=== PATIENT | male | born 1990 | race Caucasian/White ===

== ENCOUNTER → 2022-06-26 09:54 | Outpatient (BNVA) | payer SELFPAY | PROVIDERS: Family Provider Family Medicine; PCP Family Medicine; Visit Provider Family Medicine | DX: I10 Essential (primary) hypertension (principal); Z00.00 Encounter for general adult medical examination without abnormal findings; E66.9 Obesity, unspecified; Z87.39 Personal history of other diseases of the musculoskeletal system and connective tissue; L60.0 Ingrowing nail | CPT/HCPCS: 80053; 80061; 84443; 85025 ==

== ENCOUNTER 2023-10-23 18:15 | Observation (INO) | payer MEDICAID, SELFPAY ==
[2023-10-23 18:16] VITALS: BP 184/94; PULSE 91; RESP 18; TEMP 36.7; O2SAT 97; BMI 42.2
[2023-10-23 18:36] VITALS: BP 149/74; PULSE 86; RESP 18; O2SAT 97
[2023-10-23 19:04] LABS: Basophils % 0.4 %; Eosinophils # 0.1 10^3/uL (0.0-0.8); Eosinophils % 0.7 %; Hematocrit 43.3 % (37-53); Lymphocytes # 1.1 10^3/uL (0.8-4.8); Lymphocytes % 15.7 %; Mean Corpuscular HGB Conc 33.3 g/dL (30-55); Mean Corpuscular Hemoglobin 30.3 pg (27-33); Mean Corpuscular Volume 91.2 fl (82-101); Mean Platelet Volume 8.5 fL (7.4-10.4); Monocytes # 0.9 10^3/uL (0.2-0.9); Monocytes % 12.6 %; Neutrophils # 4.75 10^3/uL (1.8-7.7); Neutrophils % 70.2 %; Nucleated Red Blood Cells % 0 %; Platelet Count 204 10^3/cmm (157-399); Red Blood Count 4.75 10^6/uL (3.85-5.65); Red Cell Distribution Width 12.3 % (12.1-15.1); White Blood Count 6.77 10^3/uL (3.29-11.43)
[2023-10-23 19:25] LABS: Alanine Aminotransferase 28 U/L (0-41); Albumin Level 4.2 g/dL (3.5-5.2); Alkaline Phosphatase 70 U/L (40-130); Aspartate Amino Transferase 18 U/L (0-40); Blood Urea Nitrogen 15 mg/dL (6-20); Carbon Dioxide 25 mmol/L (22-29); Chloride 101 mmol/L (98-107); Glucose 100 mg/dL (65-115); Lipase 17 U/L (13-60); Osmolality Calculated 285 mOsm/kg (285-295); Sodium 137 mmol/L (136-145); Total Bilirubin 0.4 mg/dL (0.15-1.2); Total Protein 7.2 g/dL (6.6-8.7)
--- NOTE | 2023-10-23 19:34 | W.ED.ABDPA2 ---
HPI - Abdominal Pain General: Chief Complaint: Abdominal Pain Stated Complaint: lower abd pain, feverish Time Seen by Provider: 10/23/23 18:23 History of Present Illness: Patient presents to the ER with abdominal pain that is worse in the right upper quadrant. Patient states this been going on as well as a fever for the last several days. Patient denies any history of problems with his gallbladder. Patient states he has not been able to eat or drink much for the past several days secondary to nausea. Patient has been taken Tylenol for the pain. Review of Systems General: Reports: 10 or more systems reviewed and unremarkable except in HPI and below PFSH ED PFSH: Medical History Ingrown nail History of back pain Obesity Hypertension Social History Smoking and tobacco/nicotine status: never used tobacco/nicotine Alcohol intake: never Substance/Drug Use: former Physical Exam Const: COMMON NORMALS: no acute distress, average body habitus, patient oriented x3, no limitations, healthy appearing, alert and well nourished HENMT: COMMON NORMALS: normocephalic, atraumatic, hearing grossly normal bilaterally, external ears normal, Normal external nose present, moist oral mucous membranes and oropharynx normal HEAD & SCALP: normocephalic and atraumatic NOSE: Normal external nose present EXTERNAL EAR: Yes external ears normal Neck/C-Spine: COMMON NORMALS: no JVD Chest: COMMONS NORMALS: normal inspection of the chest and normal palpation of entire chest wall Resp: COMMON NORMALS: normal respiratory effort, No retractions, No use of accessory muscles and clear to auscultation bilaterally AUSCULTATION: clear to auscultation bilaterally Cardio: COMMON NORMALS: no JVD, regular rate, regular rhythm, S1 normal heart sound present, S2 normal heart sound present, No gallops present (Cardio), No clicks present (Cardio) and No murmurs present (Cardio) RATE: regular rate RHYTHM: regular rhythm HEART SOUNDS: S1 normal heart sound present and S2 normal heart sound present GI: COMMON NORMALS: Normal to inspection, nondistended, normoactive bowel sounds present, Soft to palpation, No hepatosplenomegaly present, no masses and no bruits; negative for non-tender (Diffusely tender worse right upper quadrant/epigastric) PALPATION: Yes Soft to palpation and Yes No hepatosplenomegaly present Neuro: COMMON NORMALS: patient oriented x3 SENSORIUM/ORIENTATION: Yes alert Course Vital Signs: Vital signs: Vital Signs Temperature 98.0 F 10/23/23 18:16 Pulse Rate 86 10/23/23 18:36 Respiratory Rate 18 10/23/23 18:36 Blood Pressure 149/74 10/23/23 18:36 Pulse Oximetry 97 10/23/23 18:36 Oxygen Delivery Me thod Room Air 10/23/23 18:36 MDM - Abdominal Pain Medical Decision Making Patient lab work done that included CBC CMP and UA, this was unremarkable except for some hematuria. Patient had a contrasted CT scan of the abdomen pelvis that showed acute appendicitis. Dr. Pierce was consulted who agreed to admit the patient for further evaluation and treatment and probably take him to surgery in the morning. We will give the patient Zosyn and make him n.p.o. after midnight. Differential Diagnosis Likely abdominal pain; Unlikely acute appendicitis, calculus of kidney, constipation, diverticulitis, endometriosis, gastroenteritis, pancreatitis or small bowel obstruction Medical Records I reviewed the patient's medical records. Lab Data I reviewed the patient's lab results. 10/23/23 18:55 10/23/23 18:55 Labs/Radiology: Radiology Impressions Abdomen/Pelvis CT 10/23/23 20:19 IMPRESSION: 1. Mildly enlarged appendix. Moderate hazy right lower quadrant mesenteric edema and borderline enlarged lymph nodes. Although the mesenteric edema is somewhat removed from the appendix, there is paracolic gutter fascial thickening near the appendix. Findings are therefore HIGHLY SUSPICIOUS FOR ACUTE APPENDICITIS rather than primary mesenteric inflammatory process. 2. Mild splenomegaly, evidence of prior calcific granulomatous disease and hepatic steatosis. COMMENTS: Consistent with the [employer]'s Incidental Findings Committee white paper (J Am Costa Radiol 2018): Any incidental renal lesion less than 1 cm or classified as too small to characterize, or any incidental cystic renal lesion characterized as simple-appearing, is likely benign. No follow-up imaging is recommended for these lesions per consensus recommendations based on imaging criteria. Laboratory Results WBC 6.77 10^3/uL (3.29-11.43) 10/23/23 18:55 RBC 4.75 10^6/uL (3.85-5.65) 10/23/23 18:55 Hgb 14.40 g/dL (11.27-16.99) 10/23/23 18:55 Hct 43.3 % (37-53) 10/23/23 18:55 MCV 91.2 fl (82-101) 10/23/23 18:55 MCH 30.3 pg (27-33) 10/23/23 18: MCHC 33.3 g/dL (30-55) 10/23/23 18:55 RDW 12.3 % (12.1-15.1) 10/23/23 18:55 Plt Count 204 10^3/cmm (157-399) 10/23/23 18:55 MPV 8.5 fL (7.4-10.4) 10/23/23 18:55 Neut % (Auto) 70.2 % 10/23/23 18:55 Lymph % (Auto) 15.7 % 10/23/23 18:55 Schuyler % (Auto) 12.6 % 10/23/23 18:55 Eos % (Auto) 0.7 % 10/23/23 18:55 Baso % (Auto) 0.4 % 10/23/23 18:55 Neut # (Auto) 4.75 10^3/uL (1.8-7.7) 10/23/23 18: Lymph # (Auto) 1.1 10^3/uL (0.8-4.8) 10/23/23 18:55 Schuyler # (Auto) 0.9 10^3/uL (0.2-0.9) 10/23/23 18:55 Eos # (Auto) 0.1 10^3/uL (0.0-0.8) 10/23/23 18:55 Baso # (Auto) 0.0 10^3/uL (0.0-0.1) 10/23/23 18:55 Nucleated RBC % (auto) 0 % 10/23/23 18: Nucleated RBCs # 0.0 /100WBC 10/23/23 18:55 Sodium 137 mmol/L (136-145) 10/23/23 18:55 Potassium 3.8 mmol/L (3.5-5.1) 10/23/23 18: Chloride 101 mmol/L (98-107) 10/23/23 18:55 Carbon Dioxide 25 mmol/L (22-29) 10/23/23 18:55 Anion Gap 14.8 (5-19) 10/23/23 18:55 BUN 15 mg/dL (6-20) 10/23/23 18:55 Creatinine 0.8 mg/dL (0.7-1.2) 10/23/23 18:55 GFR Calculation 112.0 mL/min (90-130) 10/23/23 18:55 Glucose 100 mg/dL (65-115) 10/23/23 18:55 Calculated Osmolality 285 mOsm/kg (285-295) 10/23/23 18:55 Calcium 9.0 mg/dL (8.5-10.5) 10/23/23 18:55 Total Bilirubin 0.4 mg/dL (0.15-1.2) 10/23/23 18:55 AST 18 U/L (0-40) 10/23/23 18:55 ALT 28 U/L (0-41) 10/23/23 18:55 Alkaline Phosphatase 70 U/L (40-130) 10/23/23 18:55 C-Reactive Protein 102.0 mg/L (0.0-4.9) H 10/23/23 18:55 Total Protein 7.2 g/dL (6.6-8.7) 10/23/23 18:55 Albumin 4.2 g/dL (3.5-5.2) 10/23/23 18:55 Globulin 3.0 g/dL (1.3-4.6) 10/23/23 18:55 Lipase 17 U/L (13-60) 10/23/23 18:55 Urine Color Yellow (Yellow) 10/23/23 19:30 Urine Appearance Clear (CLEAR) 10/23/23 19:30 Urine pH 5 (5-7) 10/23/23 19:30 Ur Specific [place] 1.025 (1.005-1.030) 10/23/23 19:30 Urine Protein Neg (Negative) 10/23/23 19:30 Urine Glucose (UA) Norm (Normal) 10/23/23 19:30 Urine Ketones 1+ (Negative) H 10/23/23 19:30 Urine Blood 2+ (Negative) H 10/23/23 19:30 Urine Nitrate Negative (Negative) 10/23/23 19:30 Urine Bilirubin 1+ (Negative) H 10/23/23 19:30 Urine Urobilinogen 4 mg/dL (Negative) H 10/23/23 19:30 Ur Leukocyte Esterase Negative (Negative) 10/23/23 19:30 Urine RBC 25-40 /hpf (0-2) H 10/23/23 19:30 Urine WBC 0-4 /hpf (0-5) H 10/23/23 19:30 Ur Squamous Epith Cells 0-4 /hpf (0-5) H 10/23/23 19:30 Amorphous Sediment Not Reportable 10/23/23 19:30 Urine Bacteria None /hpf (NONE) 10/23/23 19:30 Urine Mucus None /hpf 10/23/23 19:30 All radiology interpretation(s) finalized by discharge Discharge Plan Discharge Patient Disposition: Admitted As Inpatient Clinical Impression: Acute appendicitis Condition: Stable Prescriptions: No Action aspirin [Adult Aspirin Regimen] 81 mg tablet,delayed release (DR/EC) 81 mg PO DAILY ibuprofen 800 mg tablet 800 mg PO Q8H PRN (Reason: pain) Qty: 90 0RF lisinopril-hydrochlorothiazide 20-25 mg tablet See Rx Instructions .ROUTE .COMPLEX Qty: 90 1RF Dose Instruction: TAKE 1 TABLET BY MOUTH EVERY DAY Rx Instructions: TAKE 1 TABLET BY MOUTH EVERY DAY Referrals: Saran Chavez MD [Primary Care Provider] - Coding Level of Care Code ED Athletic Scout for R[facility] Tong
[2023-10-23 19:45] LABS: Anion Gap 14.8 (5-19); Potassium 3.8 mmol/L (3.5-5.1)
[2023-10-23] MEDS: ketorolac 30 mg/mL INJ IVP (19:57)
[2023-10-23] MEDS: ondansetron 2 mg/ML SDV 2 mL 4 MG IVP (19:57)
[2023-10-23] MEDS: sodium chloride 0.9% 1,000 ML 999 ML IV (19:58)
[2023-10-23 20:14] LABS: Add Urine Microscopic? YES; Bilirubin Urine 1+ (Negative); Blood Urine 2+ (Negative); Glucose Urine UA Norm (Normal); Ketones Urine 1+ (Negative); Leukocyte Esterase Urine Negative (Negative); Nitrate Urine Negative (Negative); Protein Urine Neg (Negative); Specific Gravity, Urine 1.025 (1.005-1.030); Urine Appearance Clear (CLEAR); Urine Color Yellow (Yellow); Urobilinogen Urine 4 mg/dL (Negative); pH Urine 5 (5-7)
[2023-10-23 20:17] LABS: Add Urine Culture? No; RBC Urine 25-40 /hpf (0-2); Squamous Epithelial Cell Urine 0-4 /hpf (0-5); WBC Urine 0-4 /hpf (0-5)
--- NOTE | 2023-10-23 20:19 | CTR_ITS ---
PROCEDURE INFORMATION: Exam: CT Abdomen And Pelvis With Contrast Exam date and time: 10/23/2023 8:35 PM Age: 33 years old Clinical indication: Rlq pain per patient that radiates to right flank sometimes; Additional info: Ruq abd pain, n/v. TECHNIQUE: Imaging protocol: Computed tomography of the abdomen and pelvis with contrast. Radiation optimization: All CT scans at this facility use at least one of these dose optimization techniques: automated exposure control; mA and/or kV adjustment per patient size (includes targeted exams where dose is matched to clinical indication); or iterative reconstruction. Contrast material: OMNI 350; Contrast volume: 100 ml; Contrast route: INTRAVENOUS (IV); COMPARISON: MR lumbar spine wo con* [id number] 06/23/2017 2:25 PM RADIATION DOSE METRICS: Total DLP (mGy-cm): 1479 FINDINGS: Liver: Mild diffuse hepatic steatosis. Gallbladder and bile ducts: Normal. No calcified stones. No ductal dilation. Pancreas: Normal. No ductal dilation. Spleen: Punctate calcified splenic granuloma. Mild -moderate splenomegaly to 21 cm. Adrenal glands: Normal. No mass. Kidneys and ureters: 2.4 cm simple cyst at the lower pole left kidney. Stomach and bowel: Unremarkable. No obstruction. No mucosal thickening. Appendix: The appendix is enlarged up to 8 mm diameter . Moderate hazy adjacent mesenteric edema and a few borderline enlarged lymph nodes. Mild thickening of the adjacent paracolic gutter fascia. Intraperitoneal space: Unremarkable. No free air. No significant fluid collection. Vasculature: Unremarkable. No abdominal aortic aneurysm. Lymph nodes: Bilateral hilar and subcarinal calcified lymph node granulomas noted. Urinary bladder: Unremarkable as visualized. Reproductive: Unremarkable as visualized. Bones/joints: Unremarkable. No acute fracture. Soft tissues: See Appendix finding. CT/CT abdomen pelvis w con* [id number] IMPRESSION: 1. Mildly enlarged appendix. Moderate hazy right lower quadrant mesenteric edema and borderline enlarged lymph nodes. Although the mesenteric edema is somewhat removed from the appendix, there is paracolic gutter fascial thickening near the appendix. Findings are therefore HIGHLY SUSPICIOUS FOR ACUTE APPENDICITIS rather than primary mesenteric inflammatory process. 2. Mild splenomegaly, evidence of prior calcific granulomatous disease and hepatic steatosis. COMMENTS: Consistent with the [employer]'s Incidental Findings Committee white paper (J Am Costa Radiol 2018): Any incidental renal lesion less than 1 cm or classified as too small to characterize, or any incidental cystic renal lesion characterized as simple-appearing, is likely benign. No follow-up imaging is recommended for these lesions per consensus recommendations based on imaging criteria.
[2023-10-23] MEDS: iohexol 350 mg/mL 500 mL Btl (per mL) IV (20:46)
[2023-10-23] MEDS: piperacillin-tazobactam 3.375 GM in sodium chloride 0.9% (plus) 50 ML IV (21:55)
[2023-10-23 21:59] VITALS: BP 119/67; PULSE 96; RESP 16; O2SAT 97
[2023-10-24] VITALS (13 sets, daily range): BP systolic 126–173; BP diastolic 63–101; PULSE 62–88; RESP 12–23; TEMP 36.4–37.4; O2SAT 91–100; BMI 42.2; BMI 46.8
[2023-10-24] MEDS: ketorolac 30 mg/mL INJ IVP ×3 (02:03→14:01)
[2023-10-24 05:59] LABS: Basophils % 0.5 %; Eosinophils # 0.1 10^3/uL (0.0-0.8); Eosinophils % 1.8 %; Hematocrit 40.8 % (37-53); Lymphocytes # 0.9 10^3/uL (0.8-4.8); Lymphocytes % 15.2 %; Mean Corpuscular HGB Conc 32.8 g/dL (30-55); Mean Corpuscular Hemoglobin 30.3 pg (27-33); Mean Corpuscular Volume 92.3 fl (82-101); Mean Platelet Volume 8.7 fL (7.4-10.4); Monocytes # 0.8 10^3/uL (0.2-0.9); Monocytes % 13.9 %; Neutrophils # 3.82 10^3/uL (1.8-7.7); Neutrophils % 68.1 %; Nucleated Red Blood Cells % 0 %; Platelet Count 182 10^3/cmm (157-399); Red Blood Count 4.42 10^6/uL (3.85-5.65); Red Cell Distribution Width 12.3 % (12.1-15.1); White Blood Count 5.61 10^3/uL (3.29-11.43)
[2023-10-24] MEDS: piperacillin-tazobactam 3.375 GM in sodium chloride 0.9% (plus) 50 ML IV ×2 (06:05→13:27)
--- NOTE | 2023-10-24 08:10 | PC.PHAR ---
pt states he takes care of his own medications-pt states he stop taking his lisinopril-hctz 20-25mg daily pt states not taken for a month ext shows last filled 08/19/23 90d/s pt states his pcp is not aware that he stop taking-pt states he hasnt taken aspirin 81mg daily in months-
--- NOTE | 2023-10-24 10:01 | P.HP_ITS ---
Providers/Chief Complaint 2 Admitting Physician: Eliceo Dailey MD Primary Care Provider: Saran Chavez MD Chief Complaint: lower abd pain, feverish History of Present Illness Victor M Monte is a 33 year old male who presented to the emergency department complaining of abdominal pain and fever, workup was remarkable for a CT scan of the abdomen pelvis that showed evidence of periappendiceal fat stranding with dilation of the appendix consistent with the possibility of acute appendicitis. I was consulted for this finding. Per patient report her pain started about 2 days ago started on the right lower quadrant has remained stable but due to the episode of fever patient decided to come to the hospital. Review of Systems 2 General: Reports: 10 or more systems reviewed and unremarkable except in HPI and below Medications/Allergies Home Medications Medication Instructions Recorded Confirmed Last Taken Type ibuprofen 800 mg tablet 800 mg PO Q8H PRN pain #90 tabs 06/26/22 10/24/23 Unknown Rx acetaminophen 500 mg tablet 1,500 mg PO Q6H PRN Pain 10/24/23 10/24/23 Unknown History lisinopril 20 1 tab PO DAILY 10/24/23 10/24/23 1 Month Ago History mg-hydrochlorothiazide 25 mg tablet ~09/23/23 not taken for a will Allergies Allergy/AdvReac Type Severity Reaction Status Date / Time No Known Allergies Allergy Verified 10/24/23 08:07 PFSH Acute 2 PFSH: Medical History Ingrown nail History of back pain Obesity Hypertension Social History Smoking and tobacco/nicotine status: never used tobacco/nicotine Alcohol intake: never Substance/Drug Use: former Vitals/I&O/Wt Last Vital Signs Temp 97.6 F 10/24/23 07:32 Pulse 76 10/24/23 07:32 Resp 15 10/24/23 07:32 BP 127/71 10/24/23 07:32 Pulse Ox 97 10/24/23 07:32 O2 Del Method Room Air 10/24/23 07:32 10/23/23 10/24/23 10/24/23 22:59 06:59 14:59 Intake Total 1050 / 1050 Balance 1050 / 1050 Weight last 48 hrs Weight 355 lb 3.2 oz Weight 320 lb Weight 320 lb Weight 320 lb Physical Exam 2 Narrative: General : Patient is well developed , no acute distress, oriented x3 Head : Normal cephalic, a-traumatic. Nose : Mucous membranes are without erythema. Lungs : Equal chest rise bilaterally, no use of accessory muscles, trachea is midline. CV : Rate and rhythm are normal. Abdomen : Soft, there is tenderness in the right lower quadrant. Extremities : No edema. Upper extremities are normal bilaterally. Back : non-tender to palpation, no CVA tenderness. Data 10/24/23 05:39 10/23/23 18:55 A&P Assessment and plan (1) Acute appendicitis: Qualifiers: Acute appendicitis type: with localized peritonitis Appendicitis abscess presence: without abscess Appendicitis gangrene presence: without gangrene Appendicitis perforation presence: without perforation Qualified Code(s): K35.30 - Acute appendicitis with localized peritonitis, without perforation or gangrene Plan After complete history, physical examination and review of all available clinical data the following is my assessment. Patient has an acute appendicitis and will benefit from laparoscopic appendectomy. I have discussed all the risk and benefits of the procedure including the risks of bleeding, infection, intra- abdominal abscess, injury to surrounding structures, injury to the ureter, injury to the great vessels of the abdomen, injuries during entry into the abdomen, increased risk for hernia due to body habitus, need for additional operations, sepsis, . Patient shows understanding and wished to proceed. Procedure was booked for next available or block. In the interim patient will remain n.p.o., he will be on IV fluids and antibiotics. Depending on findings during the procedure patient will be discharged either today or in the following 24 to 48 hours. Attestations 2 Medical Necessity Statement*: Possible discharge today after surgery. Coding Level of Care Code Acute Code for [facility] Diagnoses Acute appendicitis K35.30 Acute appendicitis type: with localized peritonitis Appendicitis abscess presence: without abscess Appendicitis gangrene presence: without gangrene Appendicitis perforation presence: without perforation
--- NOTE | 2023-10-24 11:02 | PC.CHAP ---
Pastoral Care Encounter/Spiritual Assessment Type of Contact [] Declined bridge repairer visit [] Patient/Family/Request visit [] Outpatient visit [] Follow-up visit [] Physician referral [] Code/Alert [x] Routine visit [] Staff referral [] Actively dying [] Patient sleeping [] Family support [] [] Out of room [] Palliative care [] [] Receiving care in room [] Pre-surgical visit [] Trauma [] Long length of stay [] ICU visit [] Other: Relational/Emotional Strength [x] Patient feels connected with others/family/visitors/staff [] Distress [] Loneliness/isolation [] Abandonment Spirituality of Patient [] Person of Juliana [] Attends Rastafari of their Juliana [] Believes in Prayer [] Reads Bible or Sikhism materials [x] There are Spiritual issues to be addressed Buggy Runner Interventions [] Prayer [] Active listening [x] Non-anxious presence [] Spiritual/emotional support [] Crisis/trauma care [] Spiritual counseling [] Bereavement support [] Provided bereavement packet [] Provided Bible/devotional materials [] Provided toy/stuffed animal, coloring book to patient or family member [] Provided Communion [] Anointing/[place] [] Salvation [x] Completed spiritual assessment [] Other: Impact on Illness or Injury [] Angry [] Fearful [] Anxious [] Often cries [] Exhaustion [] Unable to work [] Unable to attend buddhist [] Unable to walk/stand [] Unable to read [] Unable to drive [] Unable to eat/drink [] Unable to sleep [] Unable to be with family [] Patient intubated [] Other: Summary Time spent with patient 5 min
[2023-10-24] MEDS: sodium chloride 0.9% 1,000 ML 30 ML IV (13:27)
--- NOTE | 2023-10-24 13:28 | PC.NURSE ---
Patient to surgery at this time.
--- NOTE | 2023-10-24 13:35 | ANES.PREANE2 ---
Pre-Anesthetic Assessment Height/Weight: Height 1.85 m Weight 161.116 kg Temp Pulse Resp BP Pulse Ox O2 Del Method 99.3 F 88 18 173/101 98 Room Air 10/24/23 13:29 10/24/23 13:29 10/24/23 13:29 10/24/23 13:29 10/24/23 13:29 10/24/23 13:29 Operation Date: 10/24/23 14:00 Proposed Procedures p Laparoscopic Appendectomy(Not Applicable) - Eliceo Dailey MD Last intake: Intake Last Liquid Date 10/23/23 Last Solid Date 10/23/23 Social No alcohol and No tobacco Airway Submandibular: Other (small oral opening) Mallampati: Class II Pulmonary Sleep Apnea CV/HEM None reported GI None reported Anesthetic Plan ASA status: 2 Anesthesia: General Risk of > 500 ml blood loss (7ml/kg in children): No Medications/Allergies Home Medications Medication Instructions Recorded Confirmed Last Taken Type ibuprofen 800 mg tablet 800 mg PO Q8H PRN pain #90 tabs 06/26/22 10/24/23 Unknown Rx acetaminophen 500 mg tablet 1,500 mg PO Q6H PRN Pain 10/24/23 10/24/23 Unknown History lisinopril 20 1 tab PO DAILY 10/24/23 10/24/23 1 Month Ago History mg-hydrochlorothiazide 25 mg tablet ~09/23/23 not taken for a will Allergies Allergy/AdvReac Type Severity Reaction Status Date / Time No Known Allergies Allergy Verified 10/24/23 08:07 Current Medications Generic Name Dose Route Start Last Admin Trade Name Freq PRN Reason Stop Dose Admin Piperacillin Sod/Tazobactam 50 mls @ 12.5 mls/hr 10/24/23 06:00 10/24/23 13:27 Sod 3.375 gm/ Sodium Chloride IV 12.5 mls/hr Q8H SOPHIA Administration Protocol Sodium Chloride 1,000 mls @ 30 mls/hr 10/24/23 13:30 10/24/23 13:27 Sodium Chloride 0.9% IV 10/25/23 13:29 30 mls/hr .Q24H SOPHIA Administration Ketorolac Tromethamine 30 mg 10/24/23 02:00 10/24/23 07:34 Ketorolac 30 Mg/Ml Inj IVP 10/29/23 01:59 30 mg Q6H SOPHIA Administration PFSH Anesthesia Medical History Ingrown nail History of back pain Obesity Hypertension Social History Smoking and tobacco/nicotine status: never used tobacco/nicotine Alcohol intake: never Substance/Drug Use: former Data Anesthesia 10/24/23 05:39 10/23/23 18:55 Short CBC 10/23/23 10/24/23 Range/Units 18:55 05:39 WBC 6.77 5.61 (3.29-11.43) 10^3/uL Hgb 14.40 13.40 (11.27-16.99) g/dL Hct 43.3 40.8 (37-53) % MCV 91.2 92.3 (82-101) fl Plt Count 204 182 (157-399) 10^3/cmm Neut % (Auto) 70.2 68.1 % Neut # (Auto) 4.75 3.82 (1.8-7.7) 10^3/uL BMP 10/23/23 18:55 Sodium 137 Potassium 3.8 Chloride 101 Carbon Dioxide 25 BUN 15 Creatinine 0.8 Glucose 100 Calcium 9.0 Liver Function 10/23/23 Range/Units 18:55 Total Bilirubin 0.4 (0.15-1.2) mg/dL AST 18 (0-40) U/L ALT 28 (0-41) U/L Alkaline Phosphatase 70 (40-130) U/L Albumin 4.2 (3.5-5.2) g/dL Urine 10/23/23 Range/Units 19:30 Urine Color Yellow (Yellow) Urine Appearance Clear (CLEAR) Urine pH 5 (5-7) Ur Specific [place] 1.025 (1.005-1.030) Urine Protein Neg (Negative) Urine Glucose (UA) Norm (Normal) Urine Ketones 1+ H (Negative) Urine Nitrate Negative (Negative) Urine Bilirubin 1+ H (Negative) Ur Leukocyte Esterase Negative (Negative) Urine RBC 25-40 H (0-2) /hpf Urine WBC 0-4 H (0-5) /hpf Coags 10/23/23 18:55 C-Reactive Protein 102.0 H Cardiac Studies: No Data to Display
--- NOTE | 2023-10-24 15:23 | P.OP_ITS ---
Operative Report Date of procedure: October 24, 2023 Pre-op diagnosis: Acute appendicitis Post-op diagnosis: Acute appendicitis Post-op findings: Inflamed appendix, no evidence of perforation, no purulence in the abdomen. Procedure done: Laparoscopic appendectomy Specimens removed/disposition: Appendix Surgeon: Eliceo Dailey MD Shaper And Presser: ELNEA OR Staff Estimated blood loss: 5 Complications: none apparent Brief History: This is a 33-year-old male who presented with acute appendicitis, laparoscopic appendectomy was indicated. After discussion of all risk and benefits as indicated in my preop note we decided to proceed. Procedure: Patient was brought into the OR, he was placed in a supine position. He was given general anesthesia. The abdomen was prepped and draped in the usual sterile fashion and timeout was conducted. I accessed the abdomen at [place]man's point with an Optiview trocar measuring 5 mm, once entry to the abdomen was achieved pneumoperitoneum was created and initial laparoscopy showed no evidence of visceral injury. An additional 12 mm trocar was placed in the supra umbilical position and a 5 mm trocar was placed in the suprapubic region under direct visualization. The patient was positioned in steep Trendelenburg with the left side down, the terminal ileum was retracted medial and cephalad to reveal the cecum, the appendix was noted to be at this level, there was hyperemia of the appendix and surrounding inflammation but no significant purulence surrounding it or phlegmon. I then took down the mesoappendix from the tip of the appendix to the base using LigaSure. Once appendix was free I proceeded to transect the appendix at the base using a 45 mm blue load Endo JASON stapler. The staple line appeared to be healthy and hemostatic. The appendix was retrieved through the umbilical trocar site in an Endo Catch bag. The umbilical trocar site was then closed with #0 Vicryl in the Sincere-Holger suture passer under visualization. The suprapubic trocar was removed under direct visualization the left upper quadrant trocar was used to evacuate the pneumoperitoneum. At the end of the procedure all counts were correct, the wounds were closed in layers using 3-0 Vicryl for the subcutaneous tissue and #4 Monocryl for the skin. Dermabond was applied. Patient tolerated well the procedure, was extubated and transferred to the PACU in stable condition.
--- NOTE | 2023-10-24 18:30 | PC.NURSE ---
Patient sitting in bed. Patient is A&Ox3. Respirations even and non-labored on room air. Reviewed patient discharge with patient including medications and follow up appointments. discussed with patient that he may shower and pat dry. No heavy lifting for 6 weeks. Patient verbalized understanding. Patient ambulated from room with a steady gait.
--- NOTE | 2023-10-24 18:31 | PC.NURSE ---
Patient ate chicken nuggets from [employer] and denies any naiesa or vomiting. Patient denies any pain at this time.
--- NOTE | 2023-10-24 18:45 | PC.NURSE ---
Patient has prescriptions that he picked up down stairs with him. Patient did not fill the oxycodone as he states, I have had a problem in the past so I am going to try and avoid taking them but if I need them I need them. Explained to patient that the pharmacy down stairs is closed tomorrow so he would need to try and call back up here at [phone] to try and ask the doctor about sending some in somewhere else. Patient verbally understood.
== END 2023-10-24 18:45 | disposition home or self-care (01) ==
LOC: ER 21:46 → MEDSURG 10-24 07:25
PROVIDERS: Emergency Medicine; Admitting Provider Surgery; Emergency Provider Emergency Medicine; Family Provider Family Medicine; PCP Family Medicine; Visit Provider Surgery
PROC: 0DTJ4ZZ Resection of Appendix, Percutaneous Endoscopic Approach (ICD-10-PCS; CPT 44970; principal; 2023-10-24 13:50)
DX: K37 Unspecified appendicitis (principal); E66.9 Obesity, unspecified; Z68.42 Body mass index [BMI] 45.0-49.9, adult; I10 Essential (primary) hypertension; G47.30 Sleep apnea, unspecified
CPT/HCPCS: 44970; 36415; 74177; 80053; 81001; 83690; 85025; 86140; 88304; 96365; 96375; 99285; G0378; J1100; J1170; J1885; J2250; J2405; J2543; J2704; J2710; J3010; J3490; J7030; Q9967

== ENCOUNTER 2024-03-21 12:22 | Emergency (ER) | payer BC, MEDICAID, SELFPAY ==
[2024-03-21 12:23] VITALS: BP 133/78; PULSE 69; RESP 18; TEMP 36.7; O2SAT 96
[2024-03-21 12:44] VITALS: BP 133/78; PULSE 69; RESP 18; TEMP 36.7; O2SAT 96
--- NOTE | 2024-03-21 12:48 | XRR_ITS ---
PROCEDURE INFORMATION: Exam: XR Right Finger(s) Exam date and time: 03/21/2024 12:59 PM Age: 33 years old Clinical indication: Injury or trauma; Other: Lac to index finger around nailbed. Laceration; Right; Additional info: 2nd TECHNIQUE: Imaging protocol: Radiologic exam of the right fingers. Views: Minimum 2 views. COMPARISON: No relevant prior studies available. FINDINGS: Bones/joints: There is an acute comminuted nondisplaced fracture involving the distal end of the 2nd distal phalanx. A metallic foreign body is noted in the soft tissues adjacent the 2nd proximal phalanx. No other bony abnormality noted. Soft tissues: See Bones/joints finding. XR/XR finger RT min 2V [id number] IMPRESSION: Acute fracture of the 2nd distal phalanx
--- NOTE | 2024-03-21 12:56 | W.ED.WOUNDLC ---
HPI - Wound/Laceration General: Chief Complaint: Wound/Laceration Stated Complaint: Right hand index finger cut almost off Time Seen by Provider: 03/21/24 12:48 Source: patient Mode of arrival: ambulatory History of Present Illness: 33-year-old male presents emergency room with complaint of an injury to his right index finger. He was drilling through a piece of metal but drill bit broke through and got his index finger which was behind the object he was drilling. His last tetanus was 2 years ago no other injury. Onset (ago): minute(s) Extremity Location: Right: hand (Right index) [facility] PFSH: Medical History Ingrown nail History of back pain Obesity Hypertension Surgical History History of laparoscopic appendectomy 10/24/23 Dr Dailey Social History Smoking and tobacco/nicotine status: never used tobacco/nicotine Alcohol intake: never Substance/Drug Use: former Physical Exam Extremity: OTHER: Examination of the right index finger patient has a laceration across the proximal portion of the nail and the medial aspect. The nail is still attached to the nailbed. Procedures Laceration Laceration 1: Site: hand (Second finger right hand) Side (If applicable): right Size (cm): 2 Description: irregular Depth: simple, single layer Pre-repair: wound explored and irrigated extensively Skin layer closed with: nylon Size (cm): 4-0 Number of sutures: 3 Nerve Block Nerve Block 1: Local Anesthetic: lidocaine 1% Amount of anesthesia used (mL): 3 Side: left Nerve Blocks: digital (Second right finger) Procedure Successful: Yes Patient Tolerated Procedure: well Complications: none Course Vital Signs: Vital signs: Vital Signs Temperature 98.1 F 03/21/24 12:44 Pulse Rate 81 03/21/24 14:46 Respiratory Rate 18 03/21/24 14:46 Blood Pressure 133/78 03/21/24 12:44 Pulse Oximetry 97 03/21/24 14:46 Oxygen Delivery Me thod Room Air 03/21/24 13:46 MDM - Wound/Laceration Medical Decision Making Digital nerve block carried out for a nation of the nail and 2 sutures were placed to approximate the nail back into the cuticle 1 suture placed laterally to reapproximate skin edges good approximation cosmesis and hemostasis. Prior to repair it had been soaked in Betadine and then irrigated extensively. Patient tolerated well. Sutures to be removed in 7 to 10 days follow-up with orthopedics Lab Data Radiology Impressions Finger X-Ray 03/21/24 12:48 IMPRESSION: Acute fracture of the 2nd distal phalanx All radiology interpretation(s) finalized by discharge Discharge Plan Discharge Patient Disposition: Home Clinical Impression: Laceration of finger of right hand, Open fracture of tuft of distal phalanx of finger Condition: Stable Prescriptions: New amoxicillin-pot clavulanate 875-125 mg tablet 1 tab PO BID Qty: 14 0RF hydrocodone-acetaminophen 5-325 mg tablet 1 tab PO Q6H PRN (Reason: pain) Qty: 10 0RF No Action sildenafil [Viagra] 100 mg tablet 100 mg PO DAILY PRN (Reason: sexual activity) Qty: 10 3RF Rx Instructions: administer 30 minutes to 4 hours before activity lisinopril-hydrochlorothiazide 20-25 mg tablet See Rx Instructions .ROUTE .COMPLEX Qty: 90 1RF Dose Instruction: TAKE 1 TABLET BY MOUTH EVERY DAY Rx Instructions: TAKE 1 TABLET BY MOUTH EVERY DAY Discharge Orders: Discharge ED (Routine); Ordered 03/21/24 Ordered By: Travis Rucker Referrals: Saran Chavez MD [Primary Care Provider] - Discharge Diet: Usual diet Discharge Activity: Limit activity as instructed Patient Instructions: Opioid Safety, Pain Management Activity Restrictions/Additional Instructions: Thank you for choosing [facility] for your healthcare needs today. It is very important that you follow up as instructed or that you return to the Emergency Department should you have concerns or if your condition changes or worsens in any way. You were seen today for laceration of your finger and fracture of the distal tip of the finger bone. The nailbed was sutured down loosely. If there is any drainage or redness return to the emergency room do recommend to take oral antibiotics for 7 days. You reported your tetanus was up-to-date. You are also given pain medications to use if needed. Apply topical igxo-iip-johrwrp antibiotic ointment to the wound once a day keep the splint in place to protect the tip of the finger and follow-up with orthopedics. therapeutic case manager will make arrangements for follow-up. Coding Level of Care Code ED Music Director for Ralf Tong
[2024-03-21] MEDS: lidocaine 1% INJ 10 mL (per mL) 20 ML IM (13:09)
[2024-03-21 13:46] VITALS: PULSE 73; RESP 16; O2SAT 95
[2024-03-21 14:46] VITALS: PULSE 81; RESP 18; O2SAT 97
[2024-03-21] MEDS: bacitracin ointment Pkt 1 EACH TOPICAL (14:46)
--- NOTE | 2024-03-22 14:39 | DCPLANNER ---
messaged ortho for er f/u
== END 2024-03-21 14:47 | disposition home or self-care (01) ==
PROVIDERS: Emergency Provider Family Medicine; PCP Family Medicine
DX: S62.630B Displaced fracture of distal phalanx of right index finger, initial encounter for open fracture (principal); I10 Essential (primary) hypertension; W29.8XXA Contact with other powered hand tools and household machinery, initial encounter
CPT/HCPCS: 12001; 73140; 99284

== ENCOUNTER → 2024-03-29 08:08 | Outpatient (BNVA) | payer BC, MEDICAID, SELFPAY | PROVIDERS: PCP Family Medicine; Visit Provider Physician Assistant | DX: S62.630B Displaced fracture of distal phalanx of right index finger, initial encounter for open fracture; X58.XXXA Exposure to other specified factors, initial encounter | CPT/HCPCS: 73130 ==

== ENCOUNTER 2024-03-29 12:00 | Day surgery (SDC) | payer BC, MEDICAID, SELFPAY ==
[2024-03-29] VITALS (7 sets, daily range): BP systolic 119–159; BP diastolic 69–91; PULSE 65–98; RESP 14–18; TEMP 36.2–36.4; O2SAT 94–98
--- NOTE | 2024-03-29 12:21 | W.PM.OPSUD ---
Surgery/Procedure H&P Update DATE OF PROCEDURE: March 29, 2024 DATE H&P PERFORMED: 03/29/24 H&P UPDATE INFORMATION: I have reviewed H&P completed within last 30 days, I have examined patient prior to procedure and No changes to prior documentation PREOP DIAGNOSIS: Right index finger traumatic fingertip injury, nailbed injury PRIMARY INDICATION FOR PROCEDURE: Right index finger traumatic fingertip injury, nailbed injury PLANNED PROCEDURE: Operation Date: 03/29/24 14:40 Proposed Procedures p Incision & Drainage Upper Extremity - RIGHT INDEX FINGER WITH POSSIBLE NAILBED REPAIR(Right) - Chaparro Orosco DO
[2024-03-29] MEDS: acetaminophen 1,000 MG/100 ML PIGGYBACK 400 MG IV (12:33)
[2024-03-29] MEDS: sodium chloride 0.9% 1,000 ML 30 ML IV (12:33)
[2024-03-29] MEDS: ketorolac 30 mg/mL INJ IVP (12:37)
--- NOTE | 2024-03-29 13:10 | ANES.PREANE2 ---
Pre-Anesthetic Assessment Height/Weight: Height 1.85 m Weight 140.614 kg Temp Pulse Resp BP Pulse Ox O2 Del Method 97.2 F L 96 18 147/91 98 Room Air 03/29/24 12:19 03/29/24 12:19 03/29/24 12:19 03/29/24 12:19 03/29/24 12:19 03/29/24 12:23 Preop Diagnosis: Right index finger traumatic fingertip injury, nailbed injury Operation Date: 03/29/24 14:40 Proposed Procedures p Incision & Drainage Upper Extremity - RIGHT INDEX FINGER WITH POSSIBLE NAILBED REPAIR(Right) - Chaparro Orosco DO Familial anesthetic complications: None Was Beta Dena taken within 24 hours: N/A Was Clonidine taken within 24 hours: N/A Last intake: Intake Last Liquid Date 03/28/24 Last Liquid Time 23:00 Last Solid Date 03/28/24 Last Solid Time 18:00 Social No alcohol and No tobacco Exam alert, oriented x 3, clear to auscultation bilaterally and regular rate & rhythm Airway Mallampati: Class IV Dentition: full CV/HEM Hypertension Metabolic Morbid Obesity Anesthetic Plan ASA status: 2 Anesthesia: MAC Risk of > 500 ml blood loss (7ml/kg in children): No Medications/Allergies Home Medications Medication Instructions Recorded Confirmed Last Taken Type sildenafil 100 mg tablet (Viagra) 100 mg PO DAILY PRN sexual 11/03/23 03/29/24 Unknown Rx activity #10 tabs amoxicillin 875 mg-potassium 1 tab PO BID 7 days #14 tabs 03/29/24 Unknown Rx clavulanate 125 mg tablet hydrocodone 5 mg-acetaminophen 325 1 tab PO Q6H PRN pain 5 days #20 03/29/24 Unknown Rx mg tablet tabs lisinopril 20 1 tab PO DAILY 03/29/24 03/29/24 03/28/24 History mg-hydrochlorothiazide 25 mg tablet Allergies Allergy/AdvReac Type Severity Reaction Status Date / Time No Known Allergies Allergy Verified 03/29/24 08:18 Current Medications Generic Name Dose Route Start Last Admin Trade Name Freq PRN Reason Stop Dose Admin Sodium Chloride 1,000 mls @ 30 mls/hr 03/29/24 12:15 03/29/24 12:33 Sodium Chloride 0.9% IV 03/30/24 12:14 30 mls/hr .Q24H SOPHIA Administration PFSH Anesthesia Medical History Ingrown nail History of back pain Obesity Hypertension Surgical History History of laparoscopic appendectomy 10/24/23 Dr Dailey Social History Smoking and tobacco/nicotine status: never used tobacco/nicotine Alcohol intake: never Substance/Drug Use: former Data Anesthesia Cardiac Studies: No Data to Display
[2024-03-29] MEDS: ceFAZolin 3,000 MG in sodium chloride 0.9% (plus) 100 ML 200 MG IV (13:18)
[2024-03-29] MEDS: lidocaine 2% INJ 20 mL 5 ML INJECTION (13:53)
[2024-03-29] MEDS: ROPivacaine 0.5% SDV 30 mL 25 MG INJECTION (13:53)
--- NOTE | 2024-03-29 14:46 | W.PM.BPON ---
Date of Procedure: [03/29/2024] Surgeon: Chaparro Orosco DO Restaurant Shift Leader(s): None Procedure(s) performed: Right index finger irrigation and debridement (1 cm x 1 cm x 0.5 cm) (skin subcutaneous tissue fascia and bone) Right index finger nailbed repair Right index finger closed treatment distal phalanx/tuft fracture Findings of the procedure(s): Patient was found to have traumatic injury to the fingertip of the right index finger with an open tuft fracture and nailbed injury there is multiple fragments of the tuft unable to be repaired or pinned subsequently underwent I&D of this area as well as nailbed repair. Patient tolerated procedure without issues or complications taken to PACU in stable condition Estimated blood loss: 1 mL Specimen(s) removed: None Post-operative diagnosis: Right index finger traumatic fingertip injury with nailbed and open distal phalanx tuft fracture
--- NOTE | 2024-03-29 14:48 | P.OP_ITS ---
Operative Report Date of procedure: March 29, 2024 Surgeon: Chaparro Orosco DO Procedure: Pre-op diagnosis: Right Index finger traumatic fingertip injury with distal phalanx fx and nailbed injury Post-op diagnosis: Same Procedure done: Right index finger irrigation and debridement (1 cm x 1 cm x 0.5 cm) (skin subcutaneous tissue fascia and bone) Right index finger nailbed repair Right index finger closed treatment distal phalanx/tuft fracture Specimens removed/disposition: None Surgeon: Chaparro Orosco DO Anesthesia: MAC and Local Estimated blood loss: 1mL Finger tourniquet 44 minutes IV fluids: 900 Complications: None Findings: See operative report narrative Condition: stable Disposition: same day Brief History: Patient is a pleasant 33-year-old gentleman who sustained a Right Index finger crush injury to the fingertip with nailbed injury and distal phalanx. Patient originally seen evaluate in the emergency department underwent bedside irrigation debridement on antibiotics and laceration repair, tetanus up-to-date. Patient was then sent evaluated in the office and was seen evaluate by my PA. Found to have crush injury with nailbed injury as well as open distal phalanx fracture. At this point in time we talked about treatment options far as nonoperative and operative invention and through shared decision making patient like to proceed with surgical intervention of Right Index finger irrigation and debridement and nailbed repair. Patient understands the ins and outs procedure risk benefits complication alternatives of surgery and through shared decision make elects proceed with surgical invention all questions answered at this time . Procedure: Patient was seen evaluate in the preoperative holding area. Consent was reviewed and signed with patient. Correct digit/extremity was then subsequently marked. Patient was then seen evaluated by anesthesia once cleared for surgery patient was taken back to the operative suite. Patient was kept on [facility] and armboard was applied to Right upper extremity. Patient underwent anesthesia per the anesthesia apartment once appropriate anesthetized the Right upper extremity was then prepped and draped in standard orthopedic fashion. Final timeout performed. Patient received appropriate preoperative antibiotics. Finger turnicot was placed over the Right Index finger and started the insufflation of finger turnicot. This point in time I then subsequently evaluated Right Index finger patient's crush injury and open laceration around the finger pulp as well as then had to make small incisions over the eponychial folds and remove the nail plate. This was removed atraumatically with a [place] underneath the nail. Nail was subsequently removed and had visualization with patient's distal fingertip was found to have open communication directly through the sterile matrix down to bone. I gently debrided the bone edges there is multiple small fracture comminution but this was in good alignment and he and loose floating pieces were subsequently removed and the rest was left to heal on its own by secondary intention or fibrous scar. There is no large bone fragment to repair or replace the tendon. At this point time I inspected the nail bed which had a laceration. This point in time I thoroughly irrigated out the entire wound bed. I can completely debrided any fracture hematoma all devitalized skin and subcutaneous tissue. Debrided in total (1 cm x 1 cm x 0.5 cm) of skin subcutaneous tissue fascia and bone with sharp scalpel excision and rongeur. This was taken to vital tissue. Once this was completed I then thoroughly irrigated out the wound bed. I then subsequently the nailbed laceration was repaired with chromic suture and Dermabond glue. The rest of the laceration finger was closed with nylon suture. Once I was satisfied with the nailbed repair I&D I subsequently let down the tourniquet hemostasis was satisfactory. I then dressed this with a bulky soft dressing of Xeroform 4 x 4's Jordan wrap Leonel wrap and a fingertip protector. Patient was then awake from anesthesia taken PACU in stable condition. Disposition: Patient taken PACU in stable condition recoveIndex well patient tolerated procedure without issue complication will complete postoperative antibiotics, given appropriate discharge instruction as well as pain medication will follow- up in the office in 2 weeks. Patient understands agrees to current plan. Questions answered.
--- NOTE | 2024-03-29 15:00 | ANES.PREANE2 ---
Pre-Anesthetic Assessment Height/Weight: Height 1.85 m Weight 140.614 kg Temp Pulse Resp BP Pulse Ox O2 Del Method 97.3 F L 76 17 141/83 95 Room Air 03/29/24 14:57 03/29/24 14:57 03/29/24 14:57 03/29/24 14:57 03/29/24 14:57 03/29/24 14:57 Preop Diagnosis: Right index finger traumatic fingertip injury, nailbed injury Operation Date: 03/29/24 14:40 Proposed Procedures p Incision & Drainage Upper Extremity - RIGHT INDEX FINGER WITH POSSIBLE NAILBED REPAIR(Right) - DO Mika Gray anesthetic complications: None Was Beta Dena taken within 24 hours: N/A Was Clonidine taken within 24 hours: N/A Last intake: Intake Last Liquid Date 03/28/24 Last Liquid Time 23:00 Last Solid Date 03/28/24 Last Solid Time 18:00 Social No alcohol and No tobacco Exam alert, oriented x 3, clear to auscultation bilaterally and regular rate & rhythm Airway Mallampati: Class II Dentition: other (no teeth) CV/HEM Hypertension Medications/Allergies Home Medications Medication Instructions Recorded Confirmed Last Taken Type sildenafil 100 mg tablet (Viagra) 100 mg PO DAILY PRN sexual 11/03/23 03/29/24 Unknown Rx activity #10 tabs amoxicillin 875 mg-potassium 1 tab PO BID infection prevention 03/29/24 Unknown Rx clavulanate 125 mg tablet 7 days #14 tabs hydrocodone 5 mg-acetaminophen 325 1 tab PO Q6H PRN pain 7 days #28 03/29/24 Unknown Rx mg tablet tabs lisinopril 20 1 tab PO DAILY 03/29/24 03/29/24 03/28/24 History mg-hydrochlorothiazide 25 mg tablet ondansetron 4 mg disintegrating 4 mg PO Q8H Nausea and vomiting 03/29/24 Unknown Rx tablet postop 3 days #9 tabs Allergies Allergy/AdvReac Type Severity Reaction Status Date / Time No Known Allergies Allergy Verified 03/29/24 08:18 Current Medications Generic Name Dose Route Start Last Admin Trade Name Freq PRN Reason Stop Dose Admin Sodium Chloride 1,000 mls @ 30 mls/hr 03/29/24 12:15 03/29/24 12:33 Sodium Chloride 0.9% IV 03/30/24 12:14 30 mls/hr .Q24H SOPHIA Administration PFSH Anesthesia Medical History Ingrown nail History of back pain Obesity Hypertension Surgical History History of laparoscopic appendectomy 10/24/23 Dr Dailey Social History Smoking and tobacco/nicotine status: never used tobacco/nicotine Alcohol intake: never Substance/Drug Use: former Data Anesthesia Cardiac Studies: No Data to Display
[2024-03-29] MEDS: acetaminophen 325 mg Tablet PO ×2 (15:22)
--- NOTE | 2024-03-29 15:40 | ANE.PACU2 ---
Inpatient post-anesthesia follow up: Airway intact: Yes Vital signs: Temperature 97.3 F Pulse Rate 65 Respiratory Rate 18 Blood Pressure 119/69 Pulse Oximetry 95 Oxygen Delivery Me thod Room Air Oxygen Flow Rate Fraction of Inspir ed Oxygen Hydration adequate: Yes Nausea and vomiting: No Pain level: 1 Mental status: Baseline
== END 2024-03-29 15:41 | disposition home or self-care (01) ==
PROVIDERS: PCP Family Medicine; Visit Provider Student in an Organized Health Care Education/Training Program
PROC: (CPT 11042; principal; 2024-03-29 14:30)
DX: S67.190A Crushing injury of right index finger, initial encounter (principal); X58.XXXA Exposure to other specified factors, initial encounter; I10 Essential (primary) hypertension; E66.01 Morbid (severe) obesity due to excess calories; Z68.41 Body mass index [BMI] 40.0-44.9, adult
CPT/HCPCS: 11042; 11760; J0131; J0690; J1885; J2250; J2704; J2795; J3010; J7030

== ENCOUNTER → 2024-07-14 09:37 | Outpatient (BNVA) | payer BC, MEDICAID, SELFPAY | PROVIDERS: PCP Family Medicine; Visit Provider Physician Assistant | DX: S62.630A Displaced fracture of distal phalanx of right index finger, initial encounter for closed fracture (principal); X58.XXXA Exposure to other specified factors, initial encounter | CPT/HCPCS: 73130 ==